=== PATIENT | female | born 2000 | race Caucasian/White ===

== ENCOUNTER → 2018-02-08 16:44 | Outpatient (CLI) | payer MEDICAID | END | disposition home or self-care (01) | LOC: D.LDO 16:44 | DX: O26.893 Other specified pregnancy related conditions, third trimester (principal) ==

== ENCOUNTER → 2018-03-07 13:35 | Outpatient (CLI) | payer MEDICAID ==
[2018-03-07 14:10] LABS: APPEARANCE CLEAR (CLEAR); BILIRUBIN NEGATIVE (NEGATIVE); COLOR YELLOW (YELLOW); GLUCOSE NEGATIVE (NEGATIVE); KETONE NEGATIVE (NEGATIVE); NITRITE NEGATIVE (NEGATIVE); PROTEIN NEGATIVE (NEGATIVE); SPECIFIC GRAVITY 1.015 (1.005-1.020); UROBILINOGEN NORMAL (NORMAL)
[2018-03-07 14:15] LABS: UDS - AMPHET NEGATIVE QUAL (NEGATIVE); UDS - BARB NEGATIVE QUAL (NEGATIVE); UDS - BENZO NEGATIVE QUAL (NEGATIVE); UDS - COCAINE NEGATIVE QUAL (NEGATIVE); UDS - OPIATE NEGATIVE QUAL (NEGATIVE); UDS - PCP NEGATIVE QUAL (NEGATIVE); UDS - THC NEGATIVE QUAL (NEGATIVE)
== END | disposition home or self-care (01) ==
LOC: D.LDO 13:35
PROVIDERS: Obstetrics & Gynecology
DX: O26.893 Other specified pregnancy related conditions, third trimester (principal); Z3A.35 35 weeks gestation of pregnancy; R10.30 Lower abdominal pain, unspecified; M54.5 Low back pain; R11.0 Nausea

== ENCOUNTER → 2018-03-16 12:51 | Outpatient (CLI) | payer MEDICAID ==
[~2018-03-16 12:51] MED LIST: CYCLOBENZAPRINE10 MG PO; HYDROCODON-ACE1 EAC7 PO; IBUPROFEN800 MG PO
[2018-04-02 05:41] VITALS: BMI 26.1
== END | disposition home or self-care (01) ==
LOC: D.LDO 12:51
DX: O26.893 Other specified pregnancy related conditions, third trimester (principal); Z3A.36 36 weeks gestation of pregnancy

== ENCOUNTER 2018-04-02 05:29 | Inpatient (IN) | payer MEDICAID ==
[2018-04-02] VITALS (8 sets, daily range): BP systolic 116–139; BP diastolic 56–84; Ht 165.1 cm; Wt 71.2 kg
[~2018-04-02] VITALS: Ht 165.1 cm; Wt 71.2 kg
[2018-04-02] MEDS ORDERED: CYCLOBENZAPRINE10 MG PO (05:33)
[2018-04-02 06:13] LABS: HEMATOCRIT 35.4 % (36.0-48.0); HEMOGLOBIN 11.8 g/dL (12-16); MCH 27.1 pg (26.0-34.0); MCHC 33.3 g/dL (31.0-37.0); MCV 81.2 fL (80.0-100.0); RBC 4.36 10x6/uL (4.00-5.40); RDW 14.1 % (11.5-14.5); WBC 11.4 10x3/uL (4.8-10.8)
[2018-04-02 07:23] LABS: UDS - AMPHET NEGATIVE QUAL (NEGATIVE); UDS - BARB NEGATIVE QUAL (NEGATIVE); UDS - BENZO NEGATIVE QUAL (NEGATIVE); UDS - COCAINE NEGATIVE QUAL (NEGATIVE); UDS - OPIATE NEGATIVE QUAL (NEGATIVE); UDS - PCP NEGATIVE QUAL (NEGATIVE); UDS - THC NEGATIVE QUAL (NEGATIVE)
[2018-04-02 07:40] LABS: APPEARANCE SL CLDY (CLEAR); BACTERIA MODERATE /hpf (NONE SEEN); BILIRUBIN NEGATIVE (NEGATIVE); COLOR YELLOW (YELLOW); EPITHELIAL CELLS 0-5 /hpf (0-5); GLUCOSE NEGATIVE (NEGATIVE); KETONE NEGATIVE (NEGATIVE); MUCUS <1+ /lpf (NONE SEEN); NITRITE NEGATIVE (NEGATIVE); PROTEIN NEGATIVE (NEGATIVE); SPECIFIC GRAVITY 1.015 (1.005-1.020); UROBILINOGEN NORMAL (NORMAL)
[2018-04-02 15:11] LABS: BASOPHILS 0.1 % (0-2); EOSINOPHILS 0.1 % (0-7); HEMATOCRIT 29.8 % (36.0-48.0); HEMOGLOBIN 9.7 g/dL (12-16); IMMATURE GRANULOCYTES 0.3 % (0-5); LYMPHOCYTES 13.3 % (15-50); MCH 26.6 pg (26.0-34.0); MCHC 32.6 g/dL (31.0-37.0); MCV 81.9 fL (80.0-100.0); MEAN PLATELET VOLUME 9.7 fL (7.4-10.4); MONOCYTES 4.9 % (2-11); NEUTROPHILS 81.3 % (40-80); PLATELET COUNT 224 10x3/uL (130-400); RBC 3.64 10x6/uL (4.00-5.40); RDW 14.1 % (11.5-14.5)
[2018-04-02 15:12] LABS: WBC 15.6 10x3/uL (4.8-10.8)
[2018-04-03 05:13] LABS: RAPID PLASMA REAGIN Non Reactive (Non Reactive)
[2018-04-03 07:10] LABS: BASOPHILS 0.1 % (0-2); EOSINOPHILS 0.5 % (0-7); HEMATOCRIT 27.9 % (36.0-48.0); HEMOGLOBIN 9.2 g/dL (12-16); IMMATURE GRANULOCYTES 0.4 % (0-5); LYMPHOCYTES 10.9 % (15-50); MCH 26.6 pg (26.0-34.0); MCV 80.6 fL (80.0-100.0); MEAN PLATELET VOLUME 9.5 fL (7.4-10.4); MONOCYTES 8.9 % (2-11); NEUTROPHILS 79.2 % (40-80); PLATELET COUNT 224 10x3/uL (130-400); RBC 3.46 10x6/uL (4.00-5.40); RDW 14.4 % (11.5-14.5); WBC 15.4 10x3/uL (4.8-10.8)
[2018-04-03 07:17] VITALS: BP 110/57
[2018-04-03 12:12] VITALS: BP 124/60
[2018-04-03 19:37] VITALS: BP 111/61
[2018-04-04 08:40] VITALS: BP 122/72
[2018-04-04] MEDS ORDERED: IBUPROFEN800 MG PO (16:22)
[2018-04-04] MEDS ORDERED: HYDROCODON-ACE1 EAC7 PO (16:22)
== END 2018-04-04 17:00 | disposition home or self-care (01) | DRG 787 ==
LOC: D.LD 05:29 → D.SDCHOLD 07:30 → D.LD 10:10
PROVIDERS: Obstetrics & Gynecology
PROC: 10D00Z1 Extraction of Products of Conception, Low, Open Approach (ICD-10-PCS; principal; 2018-04-02 07:30)
DX: O99.02 Anemia complicating childbirth (principal); N13.30 Unspecified hydronephrosis; Z3A.39 39 weeks gestation of pregnancy; Z37.0 Single live birth; O99.89 Other specified diseases and conditions complicating pregnancy, childbirth and the puerperium; K21.9 Gastro-esophageal reflux disease without esophagitis

== ENCOUNTER → 2019-06-02 15:49 | Outpatient (CLI) | payer OTHER ==
[2018-04-02 05:41] VITALS: BMI 26.1
== END | disposition home or self-care (01) ==
LOC: D.LDO 15:49
PROVIDERS: ATTEND Student in an Organized Health Care Education/Training Program
DX: O62.9 Abnormality of forces of labor, unspecified (principal); Z3A.00 Weeks of gestation of pregnancy not specified

== ENCOUNTER → 2019-07-04 10:15 | Outpatient (CLI) | payer OTHER ==
[2018-04-02 05:41] VITALS: BMI 26.1
== END | disposition home or self-care (01) ==
LOC: D.LDO 10:15
PROVIDERS: ATTEND Obstetrics & Gynecology
DX: O26.93 Pregnancy related conditions, unspecified, third trimester (principal); Z3A.28 28 weeks gestation of pregnancy; R10.9 Unspecified abdominal pain

== ENCOUNTER 2019-09-06 08:30 | Outpatient (CLI) | payer OTHER ==
[2018-04-02 05:41] VITALS: BMI 26.1
== END 2019-09-06 10:30 | disposition home or self-care (01) ==
LOC: D.LDO 08:30
PROVIDERS: ATTEND Obstetrics & Gynecology
DX: O26.899 Other specified pregnancy related conditions, unspecified trimester (principal); Z3A.00 Weeks of gestation of pregnancy not specified

== ENCOUNTER 2019-09-16 05:09 | Inpatient (IN) | payer OTHER ==
[~2019-09-16] VITALS: Ht 165.1 cm; Wt 71.7 kg
[2019-09-16] VITALS (11 sets, daily range): BP systolic 96–122; BP diastolic 54–75; Ht 165.1 cm; Wt 71.7 kg
[2019-09-16 06:03] LABS: HEMATOCRIT 31.6 % (36.0-48.0); HEMOGLOBIN 9.9 g/dL (12-16); MCH 23.9 pg (26.0-34.0); MCHC 31.3 g/dL (31.0-37.0); MCV 76.1 fL (80.0-100.0); MEAN PLATELET VOLUME 9.6 fL (7.4-10.4); RBC 4.15 10x6/uL (4.00-5.40); RDW 15.2 % (11.5-14.5); WBC 10.2 10x3/uL (4.8-10.8)
[2019-09-16 06:24] LABS: BILIRUBIN NEGATIVE (NEGATIVE); GLUCOSE NEGATIVE (NEGATIVE); KETONE NEGATIVE (NEGATIVE); NITRITE NEGATIVE (NEGATIVE); UROBILINOGEN NORMAL (NORMAL)
--- NOTE | 2019-09-16 10:03 | NUR ---
0945 FUNDAL HEIGHT 1 FINGER BELOW UMBILICUS, MIDLINE AND SLIGHTLY BOGGY. FEW CLOTS AND BLOODY DRAINAGE FROM VAGINA DURING UTERINE MASSAGE. UTERUS FIRMED UP AFTER MASSAGE. NEW PERIPAD PUT IN PLACE. NS WITH 20 MG PITOCIN STARTED.
--- NOTE | 2019-09-16 10:35 | NUR ---
RECEIVED PT FROM VIA BED TO ROOM 1273. BED LOCKED AND PLACED IN LOW POSITION. VSS. PT AAO X 3. HRRR WITHOUT AUDIBLE MURMUR. BBS CLEAR. BS X 4 HYPOACTIVE. ABDOMEN SOFT/NON-DISTENDED. FUNDUS FIRM AT U/1. RUBRA LOCHIA MOD AMT. NO CLOTS NOTED. ABDOMINAL INCISION OPEN TO AIR. MILD REDNESS NOTED. NO DRAINAGE NOTED. PERIPAD CHANGED. NEG HOMANS' SIGN. PPP. NO EDEMA NOTED TO BLE. SCDS ON BLE. PUMP ON. PIV SITE CLEAR TO RIGHT FOREARM. NS WITH PITOCIN 20 UNITS INFUSING AT 125 ML/HR. SL TO LEFT HAND. SITE CLEAR. PT STATES INCISIONAL PAIN OF "3" ON 0-10 PAIN SCALE. SALAS TO GRAVITY DRAINING DARK, YELLOW URINE. ICE PACK TO INCISION. DENIES NEEDS OR C/O.
--- NOTE | 2019-09-16 10:59 | NUR ---
DILAUDID FITNESS AND WELLNESS DIRECTOR STARTED ORDERED. PT INSTRUCTED ON MED. VERBALIZES UNDERSTANDING.
--- NOTE | 2019-09-16 11:45 | NUR ---
PT SITTING UP IN BED. AWAKE. VISITS WITH MOTHER. VS NOTED. DENIES C/O OR NEEDS. DENIES NAUSEA.
--- NOTE | 2019-09-16 12:37 | NUR ---
PT SITTING UP IN BED. CONSUMING CLEAR, LIQUID DIET. TOLERATING WELL. VSS. FUNDUS MASSAGED UNTIL FIRM AT U/2. RUBRA LOCHIA MOD AMT. NO CLOTS EXPRESSED. NO ACTIVE BLEEDING NOTED. PERIPAD CHANGED. INCISION WITHOUT CHANGES. FRESH ICE PACK TO INCISION.
[2019-09-16 12:45] LABS: BASOPHILS 0.1 % (0-2); EOSINOPHILS 0.6 % (0-7); HEMATOCRIT 31.8 % (36.0-48.0); HEMOGLOBIN 9.6 g/dL (12-16); IMMATURE GRANULOCYTES 0.5 % (0-5); LYMPHOCYTES 15.1 % (15-50); MCH 23.5 pg (26.0-34.0); MCHC 30.2 g/dL (31.0-37.0); MCV 77.8 fL (80.0-100.0); MEAN PLATELET VOLUME 9.6 fL (7.4-10.4); MONOCYTES 4.9 % (2-11); NEUTROPHILS 78.8 % (40-80); PLATELET COUNT 276 10x3/uL (130-400); RBC 4.09 10x6/uL (4.00-5.40); RDW 15.9 % (11.5-14.5)
[2019-09-16 12:46] LABS: WBC 14.3 10x3/uL (4.8-10.8)
--- NOTE | 2019-09-16 14:18 | NUR ---
PT C/O GAS PAIN IN SHOULDERS. MYLICON 80 MG GIVEN PO ORDERED.
--- NOTE | 2019-09-16 16:00 | NUR ---
PT SITTING UP IN BED. VISITS WITH FAMILY. DENIES C/O OR NEEDS.
--- NOTE | 2019-09-16 17:41 | NUR ---
DR ORTIZ NOTIFIED OF PT REQUESTS TO AMBULATE AND START PO PAIN MEDS. ORDERS RECEIVED.
--- NOTE | 2019-09-16 18:10 | NUR ---
PIV CONVERTED TO SALINE LOCK. FLUSHES EASILY WITH 10 ML NS. SITE CLEAR. SALAS DC'D WITH 215 ML OF DARK, YELLOW URINE NOTED IN URIMETER. PT INSTRUCTED TO NOTIFY NURSE OF NEED TO VOID FOR ASSISTANCE TO BR. SANDWICH TRAY PROVIDED TO PT.
--- NOTE | 2019-09-16 19:17 | NUR ---
RN TO PT BEDSIDE FOR ASSESSMENT. PT PASSING FLATULANCE. VSS. FUNUS FIRM, MIDLINE, 2 BELOW, SCANT RUBRA LOCHIA NOTED ON PERIPAD. PT UP TO BATHROOM, U.O. 250 TO URINE HAT, 1 SMALL CLOT NOTED IN URINE HAT. PAIN 4/10 TO ABDOMINAL INCISION. INCISION CLEAN, DRY, INTACT DERMABOND IN PLACE. PT STATES ALL NEEDS CURRENTLY MET, CALL LIGHT WITHIN REACH, BED IN LOWEST POSITION, NON-SKID SOCKS ON, MOTHER OF PT AT BEDSIDE.
--- NOTE | 2019-09-16 23:55 | NUR ---
RN TO PT BEDSIDE FOR ROUNDING, PT SLEEPING AT THIS TIME, NO FURTHER NEEDS AT THIS TIME. BED IN LOWEST POSITION, SIDE RAILS UP X2, CALL LIGHT WITHIN REACH.
[2019-09-17 04:18] VITALS: BP 118/66
--- NOTE | 2019-09-17 04:18 | NUR ---
RN TO PT BEDSIDE FOR ROUNDING, INFANT IS IN MOTHER'S ARMS BONDING. VSS. PT COMPLAINS OF 4/10 PAIN TO ABDOMINAL INCISION, TORADOL 10MG PO ADMINISTERED PER MD ORDERS. FUNDUS FIRM, MIDLINE, 2 BELOW, SCANT RUBRA LOCHIA NOTED. PT PROVIDED WITH MORE ICE WATER, BED IN LOWEST POSITION, CALL LIGHT WITHIN REACH, SIDE RAILS UPX2.
[2019-09-17 05:08] LABS: RAPID PLASMA REAGIN Non Reactive (Non Reactive)
[2019-09-17 06:33] LABS: BASOPHILS 0.1 % (0-2); EOSINOPHILS 0.7 % (0-7); HEMOGLOBIN 8.5 g/dL (12-16); IMMATURE GRANULOCYTES 0.4 % (0-5); MCH 22.8 pg (26.0-34.0); MCHC 29.3 g/dL (31.0-37.0); MEAN PLATELET VOLUME 8.8 fL (7.4-10.4); NEUTROPHILS 78.8 % (40-80); PLATELET COUNT 230 10x3/uL (130-400); RBC 3.72 10x6/uL (4.00-5.40)
[2019-09-17 06:34] LABS: WBC 10.7 10x3/uL (4.8-10.8)
[2019-09-17 07:12] VITALS: BP 111/72
--- NOTE | 2019-09-17 07:12 | NUR ---
AM ASSESSMENT COMPLETED, NAD NOTED, ALERT AND RESPONSIVE, BONDING WELL WITH IN ARMS ON ENTRY TO ROOM, STATES JUST COMPLETED . VSS, AFEBRILE, RESP EVEN AND UNLABORED, HEART RRR WITHOUT MURMUR, ABD SOFT AND NONDISTENDED, REPORTS PASSING FLATUS, LOW TRANSVERSE INCISION INTACT AND APPROXIMATED WITH DERMABOND WITH SUTURES NOTED AT INCISION ENDS. ICE PACK OVERLAY IN PLACE PER PT REQUEST. REPORTS VOIDING WITHOUT DIFFICULTY, AMADO FREELY, NEGATIVE CLARE'S SIGN B LE. ENCOURAGED TCDB, AMBULATION IN HALLS X3 TODAY, PAIN MANAGEMENT, AND SHOWER TODAY. PT STATES UNDERSTANDING OF ALL INFORMATION PROVIDED. CUP OF ICE WATER PROVIDED UPON REQUEST. CALL LIGHT IN EASY REACH, SIDE RAILS UP X2, BED IN LOW POSITION. WILL MONITOR.
--- NOTE | 2019-09-17 08:43 | NUR ---
PT COMPLAINING OF GAS PAIN ON AMBULATON IN HALLS. REQUESTS PRN MED, SAME PROVIDED. ADDITIONAL LINENS PROVIDED FOR SHOWER LATER THIS AM. WILL MONITOR.
--- NOTE | 2019-09-17 09:10 | NUR ---
pt requesting prn pain med for abdominal cramping and incisional pain. rates pain 7 1/2 on numeric pain scale. prn med provided. pt also relates left lower leg muscle pain, there is no redness, warmth, or unilateral swelling. dr de los santos made aware of pt complaint. no new orders received.
--- NOTE | 2019-09-17 10:12 | NUR ---
SCHEDULED TORADOL ADMINISTERED, CUP OF ICE WATER AND ICE PACK OVERLAY TO PT. PT ASSISTED OOB TO BR FOR SHOWER, LINENS CHANGED, NO OTHER NEEDS VOICED. PT MOTHER IN ROOM OFFERING PT FURTHER ASSIST NEEDED. ENCOURAGED PT TO USE CALL LIGHT TO NOTIFY THIS RN AFTER SHOWER. STATES UNDERSTANDING.
--- NOTE | 2019-09-17 11:08 | NUR ---
PT ROUNDS COMPLETED, LEFT HAND SALINE LOCK REMOVED PER PT REQUEST, SITE COVERED WITH GAUZE AND CLEAR TAPE. TOLERATES PROCEUDRE WELL. DENIES OTHER NEEDS AT THIS TIME. CALL LIGHT IN EASY REACH. WILL MONITOR.
[2019-09-17 12:08] VITALS: BP 111/72
--- NOTE | 2019-09-17 12:08 | NUR ---
ROUNDS COMPLETED, VSS, AFEBRILE, SITTING UP IN BED SMILING AND EATING GUMMY BEAR SNACKS. DENIES NEEDS OR CONCERNS. WILL MONITOR.
--- NOTE | 2019-09-17 13:43 | NUR ---
rounds completed, nad, will monitor.
--- NOTE | 2019-09-17 16:21 | NUR ---
scheduled toradol administered with sips water, pt rates pain a 6/10 now, reports some flatus passed. nad, infant in rolling crib also in nad. will monitor.
--- NOTE | 2019-09-17 17:37 | NUR ---
pt sitting up in bed, tolerates po intake well, denies needs or concerns, resp even and unlabored, call light in easy reach of pt. will monitor.
--- NOTE | 2019-09-17 18:23 | NUR ---
PT OOB TO BR TO VOID, NAD NOTED. EMPTY TRAYS REMOVED FROM ROOM. NO OTHER NEEDS VOICED AT THIS TIME. WILL MONITOR.
--- NOTE | 2019-09-17 18:35 | NUR ---
AMBULATORY IN HALLS, NAD NOTED.
[2019-09-17 19:01] VITALS: BP 126/72
--- NOTE | 2019-09-17 19:11 | NUR ---
RN TO PT ROOM FOR ASSESSMENT. PT COMPLAIN OF 5/10 PAIN TO ABDOMINAL INCISION AREA. FUNDUS FIRM, MIDLINE, 2 BELOW, SCANT RUBRA LOCHIA NOTED ON PERIPAD. BED IN LOWEST POSITION, CALL LIGHT WITHIN REACH, SIDE RAILS UPX2.
--- NOTE | 2019-09-17 23:49 | NUR ---
RN TO PT BEDSIDE FOR ROUNDING. PT CURRENTLY SLEEPING.
--- NOTE | 2019-09-18 00:57 | NUR ---
RN TO PT BEDSIDE, PT REQUESTS APPLE JUICE. RN PROVIDED PT WITH APPLE JUICE. PT STATES ALL OTHER NEEDS MET AT HTIS TIME.
[2019-09-18 04:04] VITALS: BP 115/65
--- NOTE | 2019-09-18 04:05 | NUR ---
RN TO PT BEDSIDE FOR ROUNDING, PT IN BED BONDING WITH . PT STATES PAIN IS 4/10 TO ABDOMEN, FUNDUS FIRM, MIDLINE, 2 BELOW. SCANT RUBRA LOCHIA NOTED. PT ADMINISTERED TORADOL 10MG PO PER MD ORDERS. PT STATES ALL OTHER NEEDS CURRENTLY MET. BED IN LOWEST POSITION, CALL LIGHT WITHIN REACH, SIDE RAILS UPX2.
--- NOTE | 2019-09-18 07:08 | NUR ---
AMBULATING IN HALLWAY TO NURSERY TO TAKE BABY TO ROOM. PT DENIES NEEDS.
[2019-09-18 07:27] VITALS: BP 126/83
--- NOTE | 2019-09-18 07:34 | NUR ---
ASSESSMENT DONE. VS DONE. UP AND ABOUT IN ROOM CARING FOR INFANT. DENIES NEEDS. STATES THAT PAIN IS BETTER. BIKINI LINE INCISION WITH DERMABOND- APPEARANCE WNL. SCANT LOCHIA NOTED ON PAD.
--- NOTE | 2019-09-18 10:01 | NUR ---
SITTING UP IN BED. DENIES NEEDS.
--- NOTE | 2019-09-18 10:30 | NUR ---
DR ORTIZ HERE TO SEE PT- DISCHARGE WITH ORDER RECEIVED.
[2019-09-18] MEDS ORDERED: PERCOCET 10-321 EAC1 PO (10:45)
[2019-09-18] MEDS ORDERED: IBUPROFEN600 MG PO (10:46)
--- NOTE | 2019-09-18 12:38 | NUR ---
RINGS CALL LIGHT- REQUESTING PAIN MEDICATION BEFORE DISCHARGE. CO PAIN IN ABD AND RATES PAIN A 7 ON SCALE OF 0-10. MED GIVEN.
--- NOTE | 2019-09-18 13:40 | NUR ---
DISCHARGED HOME [facility]IH . TO AUTO VIA W/C.
== END 2019-09-18 13:05 | disposition home or self-care (01) | DRG 784 ==
LOC: D.LD 05:09 → D.SDCHOLD 07:30 → D.LD 09-18 13:05
PROVIDERS: ADMIT Obstetrics & Gynecology; ATTEND Obstetrics & Gynecology
PROC: 10D00Z1 Extraction of Products of Conception, Low, Open Approach (ICD-10-PCS; principal; 2019-09-16 07:30)
PROC: 0UB70ZZ Excision of Bilateral Fallopian Tubes, Open Approach (ICD-10-PCS; 2019-09-16 07:30)
DX: O34.211 Maternal care for low transverse scar from previous cesarean delivery (principal); O99.324 Drug use complicating childbirth; Z3A.39 39 weeks gestation of pregnancy; Z37.0 Single live birth; F12.90 Cannabis use, unspecified, uncomplicated; O99.89 Other specified diseases and conditions complicating pregnancy, childbirth and the puerperium; N73.6 Female pelvic peritoneal adhesions (postinfective); Z30.2 Encounter for sterilization